=== PATIENT | male | born 1985 | race Two or more races ===

== ENCOUNTER 2019-01-26 15:17 | Emergency (ER) | payer OTHER ==
[~2019-01-26] VITALS: Ht 170.2 cm; Wt 73.0 kg
[2019-01-26] MEDS ORDERED: MORPHINE SULFATE 4 MG/ML CPJ (NOT FOR IM USE) IV ONE (16:30)
[2019-01-26] MEDS ORDERED: ONDANSETRON 4MG ODT PO ONE (16:30)
[2019-01-26] MEDS ORDERED: BACITRACIN ZINC OINT UDPKT TOP ONE (18:45)
[2019-01-26] MEDS ORDERED: BACITRACIN 15GM TUBE TOP NR (18:45)
[2019-01-26 19:00] VITALS: BP 126/62
== END 2019-01-26 19:06 | disposition home or self-care (01) ==
LOC: ER 15:17
DX: S00.83XA Contusion of other part of head, initial encounter (principal); S01.511A Laceration without foreign body of lip, initial encounter; S80.812A Abrasion, left lower leg, initial encounter; V29.49XA Motorcycle driver injured in collision with other motor vehicles in traffic accident, initial encounter; Y93.89 Activity, other specified; Y92.411 Interstate highway as the place of occurrence of the external cause
CPT/HCPCS: 12011; 70450; 71250; 74176; 96374; 99284; J2270; Q0162